=== PATIENT | female | born 1990 | race Caucasian/White ===

== ENCOUNTER 2018-03-01 20:23 | Emergency (ER) | payer OTHER, SELFPAY ==
[2018-03-01 20:30] VITALS: BP 125/80; PULSE 77; RESP 15; TEMP 36.7; O2SAT 98; BMI 29.8
--- NOTE | 2018-03-01 20:34 | DI.RAD.S_ITS ---
PROCEDURE: XR SHOULDER RT MIN 2V INDICATIONS: right shoulder injury TECHNIQUE: 2 views of the shoulder were acquired. COMPARISON: [facility], MR, SHOULDER WITH CONTRAST, 10/18/2015, 10:33. FINDINGS: Bones: Deformity of the distal right clavicle and widening of the right acromial clavicular joint not significantly changed compared to prior MRI which could be due to prior trauma or surgery. Suture anchor noted in the right coracoid process. No acute fractures or dislocations. No suspicious bony lesions. Visualized ribs appear intact. Soft tissues: No suspicious soft tissue calcifications. IMPRESSION: No fracture. No acute osseous lesion. If there are persistent symptoms or clinical suspicion for pathology, then repeat radiographs or advanced imaging (CT, MRI or bone scan) should be considered for further evaluation. Dictated by: Kathi Segundo MD, PhD on 03/01/2018 at 21:14 Approved by: Kathi Segundo MD, PhD on 03/01/2018 at 21:15
[2018-03-01 21:02] VITALS: BP 125/80; PULSE 77; RESP 15; TEMP 36.7; O2SAT 98; BMI 29.8
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
[2018-03-01] MEDS: HYDROCODONE/ACET 5/325 TABLET 2 TAB PO (21:21)
[2018-03-01] MEDS: IBUPROFEN 400 MG TABLET 800 MG PO (21:21)
[2018-03-01] MEDS: HYDROCODONE/ACET 5/325 PREPACK 1 BOTTLE MISC (21:57)
== END 2018-03-01 21:50 | disposition home or self-care (01) ==
PROVIDERS: Emergency Provider Internal Medicine
DX: S40.011A Contusion of right shoulder, initial encounter (principal); S46.911A Strain of unspecified muscle, fascia and tendon at shoulder and upper arm level, right arm, initial encounter; T73.3XXA Exhaustion due to excessive exertion, initial encounter; Y99.0 Civilian activity done for income or pay
CPT/HCPCS: 73030; 99282; 99283

== ENCOUNTER → 2019-11-24 15:33 | Outpatient (ROUT) | payer SELFPAY ==
[2019-11-26 19:43] LABS: COVID19 Sendout Not Detected (Not Detected)
== END ==
PROVIDERS: Visit Provider Internal Medicine
DX: Z11.59 Encounter for screening for other viral diseases (principal)
CPT/HCPCS: 87635

== ENCOUNTER 2019-12-29 18:13 | Emergency (ER) | payer OTHER, SELFPAY ==
[2019-12-29 18:17] VITALS: BP 113/56; PULSE 90; RESP 14; TEMP 36.6; O2SAT 98; BMI 29.5
[2019-12-29] MEDS: LIDOCAINE PATCH 1 EACH ADH..PATCH TOP (20:29)
[2019-12-29] MEDS: CYCLOBENZAPRINE 10 MG PREPACK 1 BOTTLE MISC (20:29)
[2019-12-29 20:43] VITALS: BP 115/66; PULSE 83; O2SAT 98
--- NOTE | 2019-12-29 20:47 | ED.BACK ---
HPI - Back Pain/Injury General Chief Complaint: Back Pain/Injury Stated Complaint: Lower Back Pain Time Seen by Provider: 12/29/19 20:00 Source: patient Mode of arrival: Ambulatory Limitations: no limitations History of Present Illness HPI Narrative: 29F nonsmoker without significant medical history presents with left lower back pain for 2 days. She thinks her pain started on a recent trip to [email or web address] when she was climbing around on big boulders and she was twisting and felt a pulling/tugging pain in her lower back. She is 19weeks . She does have a history of back pain with sciatica. She states her pain is worse with motion and improves with rest. She states it radiates down a little bit he on her buttocks in her left leg. She denies any numbness, tingling or weakness. She denies any trouble controlling or bladder. She denies any fever, chills or use blood thinners. She has no history of IV drug abuse. She denies any vaginal bleeding or discharge. MD Complaint: back pain and back injury Onset (ago): day(s) Duration: constant Similar Symptoms Previously: Yes Location: left lower back Severity: moderate Quality: sharp Radiation: left leg Exacerbating factors: movement Context: turning/twisting Associated symptoms: denies other symptoms Treatments prior to arrival: cold therapy and acetaminophen Related Data Home Medications Medication Instructions Recorded Confirmed celecoxib [Celebrex] 200 mg PO #0 05/22/16 melatonin 5 mg PO HS #0 05/22/16 trazodone 100 mg PO #0 05/22/16 Previous Rx's Medication Instructions Recorded oxycodone 5 mg PO Q4HP PRN #40 tab 05/26/16 oxycodone 5 mg PO Q4HP PRN #40 tab 05/26/16 cyclobenzaprine 10 mg PO TIDP PRN #20 tab 01/26/17 hydrocodone-acetaminophen [[place]] 1 tab PO Q4-6H PRN #7 tab 03/01/18 trazodone 50 mg PO BEDTIME PRN #10 tab 03/01/18 cyclobenzaprine 10 mg PO TID PRN #14 tab 12/29/19 lidocaine [Lidoderm] 1 patch TOP DAILY #15 each 12/29/19 Allergies Allergy/AdvReac Type Severity Reaction Status Date / Time diphenhydramine AdvReac Unknown Verified 12/29/19 18:17 [DIPHENHYDRAMINE] haloperidol [From Haldol] AdvReac Verified 12/29/19 18:17 Review of Systems Constitutional Constitutional: Denies chills, Denies fatigue, Denies fever(s), Denies frequent falls, Denies lethargy and Denies weakness Eyes Eyes: Denies change in vision, Denies eye discharge, Denies irritation and Denies loss of vision ENT Ears, Nose, Mouth, and Throat: Denies change in voice, Denies dizziness, Denies neck pain, Denies sore throat and Denies throat swelling Cardiovascular Cardiovascular: Denies chest pain, Denies irregular heart rhythm, Denies lightheadedness, Denies palpitations, Denies dyspnea, Denies dyspnea on exertion and Denies orthopnea Respiratory Respiratory: Denies cough, Denies dyspnea, Denies dyspnea on exertion and Denies wheezing Gastrointestinal Gastrointestinal: Denies abdominal pain, Denies change in bowel habits, Denies diarrhea, Denies nausea and Denies vomiting Musculoskeletal Musculoskeletal: Reports back pain, Denies neck pain and Denies numbness Integumentary/Breasts Skin/Breast: Denies pruritus, Denies erythema, Denies rash and Denies wounds Neurologic Neurologic: Denies behavioral changes, Denies confusion, Denies dizziness, Denies frequent falls, Denies loss of vision, Denies numbness and Denies weakness Psychiatric Psychiatric: Denies anxiety, Denies behavioral changes, Denies confusion, Denies depression, Denies homicidal ideation and Denies suicidal ideation Endocrine Endocrine: Denies fatigue, Denies flushing and Denies palpitations Hematologic/Lymphatic Hematologic/Lymphatic: Denies easy bruising Allergic/Immunologic Allergic/Immunologic: Denies urticaria, Denies throat swelling and Denies wheezing Patient History Medical History Insomnia (Chronic) Pollen allergies (Chronic) Sciatica (Chronic) Sciatica (Chronic) Surgical History Status post AC joint reconstruction (Resolved) Status post AC joint resection (Resolved) Social History Smoking Status: Former smoker Smoking Status: Former smoker alcohol intake frequency: holidays/special occasions only Substance Use Type: does not use Exam Narrative Exam Narrative: GENERAL: [29] year old patient appears stated age. Well-nourished, well-developed patient, in obvious pain HEAD: Atraumatic. Normocephalic. EYES: Pupils equal round and reactive. Extraocular motions intact. No scleral icterus. No injection or drainage. ENT: Nose without bleeding, purulent drainage. Throat without erythema, tonsillar hypertrophy or exudate. Airway patent. NECK: Trachea midline. Non tender CARDIOVASCULAR: Regular rate and rhythm without murmurs, gallops, or rubs. RESPIRATORY: Clear to auscultation. Breath sounds equal bilaterally. No wheezes, rales, or rhonchi. GASTROINTESTINAL: Abdomen soft, non-tender, nondistended. EXTREMITIES: No edema or joint tenderness. BACK: intermediate frame tender but free of any obvious external abnormalities. Patient exam notes decreased range of motion and muscle spasm, but no CVA tenderness, or vertebral point tenderness. There are no symptoms of cauda equina such as saddle anesthesia, and decreased reflexes, decreased sensation or strength. NEURO: AOx3. SKIN: No rash or erythema of visible areas Initial Vital Signs Initial Vital Signs: Vital Signs Temperature 97.9 F 12/29/19 18:17 Pulse Rate 90 12/29/19 18:17 Respiratory Rate 14 12/29/19 18:17 Blood Pressure 113/56 L 12/29/19 18:17 Pulse Oximetry 98 12/29/19 18:17 Course Orders Ordered: Discontinued Medications Cyclobenzaprine HCl (Flexeril 10 Mg Prepack) 1 bottle [facility] SEEINSTR ONE Stop: 12/29/19 20:19 Last Admin: 12/29/19 20:29 Dose: 1 bottle Documented by: AZAR Lidocaine (Lidoderm) 1 each TOP NOW ONE Stop: 12/29/19 20:19 Last Admin: 12/29/19 20:29 Dose: 1 each Documented by: AZAR Vital Signs Vital signs: Vital Signs - 8 hr 12/29/19 18:17 12/29/19 20:43 Temperature 97.9 F Pulse Rate 90 83 Respiratory Rate 14 Blood Pressure 113/56 L 115/66 Pulse Oximetry 98 98 Discharge Plan Departure Patient Disposition: Home Clinical Impression: Back muscle spasm Discharge Date/Time: 12/29/19 20:46 Instructions: DI for Back Spasm Activity Restrictions/Additional Instructions: *You have been diagnosed with [lumbar pain with spasm] *What to do: *Take medications as directed *Follow up with your primary care provider in 2-3 days, call for an appointment. Let them know you were seen in the Emergency Department and that we ask that you be seen in follow up *Return to ER if you should have any new, worsening or concerning symptoms Prescriptions: New cyclobenzaprine 10 mg tablet 10 mg PO TID PRN (Reason: muscle spasm) Qty: 14 RF: 0 lidocaine [Lidoderm] 5 % adhesive patch,medicated 1 patch TOP DAILY Qty: 15 RF: 0 No Action trazodone 100 MG tablet 100 mg PO Qty: 0 RF: 0 celecoxib [Celebrex] 200 MG capsule 200 mg PO Qty: 0 RF: 0 melatonin 5 MG tablet 5 mg PO HS Qty: 0 RF: 0 oxycodone 5 MG tablet 5 mg PO Q4HP PRNQty: 40 RF: 0 oxycodone 5 MG tablet 5 mg PO Q4HP PRNQty: 40 RF: 0 cyclobenzaprine 10 MG tablet 10 mg PO TIDP PRNQty: 20 RF: 0 trazodone 50 mg tablet 50 mg PO BEDTIME PRN (Reason: insomnia) Qty: 10 RF: 0 hydrocodone-acetaminophen [[place]] 5-325 mg tablet 1 tab PO Q4-6H PRN (Reason: shoulder pain) Qty: 7 RF: 0 Referrals: Jay Garner [Primary Care Provider] -
--- NOTE | 2019-12-29 21:08 | PC.NURSE ---
Pt left without prescriptions at time of discharge. Got a hold of patient on phone, PT requested prescriptions to be called into [facility] in [place]. Prescriptions called in.
== END 2019-12-29 20:46 | disposition home or self-care (01) ==
PROVIDERS: Emergency Provider Emergency Medicine; PCP Family Medicine
DX: M62.830 Muscle spasm of back (principal)
CPT/HCPCS: 99282

== ENCOUNTER → 2020-01-17 14:36 | Outpatient (ROUT) | payer SELFPAY ==
[2020-01-18 18:09] LABS: COVID19 Sendout Not Detected (Not Detected)
== END ==
PROVIDERS: PCP Family Medicine; Visit Provider Internal Medicine
DX: Z11.59 Encounter for screening for other viral diseases (principal)
CPT/HCPCS: 87635

== ENCOUNTER 2020-04-25 17:58 | Outpatient (CLI) | payer OTHER, SELFPAY ==
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
== END 2020-04-25 18:47 | disposition home or self-care (01) ==
LOC: OB 04-26 10:11
PROVIDERS: Referring Provider Family Medicine; Visit Provider Family Medicine
DX: O26.893 Other specified pregnancy related conditions, third trimester (principal); M54.5 Low back pain; R10.2 Pelvic and perineal pain; Z3A.35 35 weeks gestation of pregnancy
CPT/HCPCS: 59025; G0378; G0379

== ENCOUNTER → 2020-04-30 16:12 | Outpatient (CLI) | payer OTHER, SELFPAY ==
[2020-05-01 12:07] LABS: Strep Grp B PCR NEG for Grp B Strep
== END ==
PROVIDERS: Visit Provider Family Medicine
DX: Z34.90 Encounter for supervision of normal pregnancy, unspecified, unspecified trimester (principal); Z3A.36 36 weeks gestation of pregnancy
CPT/HCPCS: 87653

== ENCOUNTER 2020-05-16 01:22 | Outpatient (CLI) | payer OTHER, SELFPAY | END 2020-05-16 02:00 | disposition home or self-care (01) | LOC: LABOR 08:13 → OB 05-20 15:40 | PROVIDERS: Referring Provider Obstetrics & Gynecology; Visit Provider Obstetrics & Gynecology | DX: O26.893 Other specified pregnancy related conditions, third trimester (principal); N89.8 Other specified noninflammatory disorders of vagina; Z3A.38 38 weeks gestation of pregnancy | CPT/HCPCS: 59025; G0378; G0379 ==

== ENCOUNTER 2020-05-20 00:58 | Inpatient (IN) | payer OTHER, SELFPAY ==
[2020-05-20 01:33] LABS: Add Manual Diff / Slide Review NO; Basophils Absolute Auto 100 /uL (0-100); Basophils Percent Auto 1.2 % (0-2); Eosinophils Absolute Auto 100 /uL (0-450); Eosinophils Percent Auto 0.7 % (2-4); Hemoglobin 11.7 g/dL (12.0-16.0); Lymphocytes Absolute Auto 2900 /uL (1100-4500); Lymphocytes Percent Auto 26.1 % (25-40); Mean Corpuscular HGB Conc 33.4 % (30-36); Mean Corpuscular Hemoglobin 28.3 PG (26-34); Mean Corpuscular Volume 84.9 fL (80-100); Monocytes Absolute Auto 1100 /uL (0-900); Monocytes Percent Auto 10.1 % (3-14); Neutrophils Absolute Auto 6900 /uL (1500-7000); Neutrophils Percent Auto 61.9 % (50-75); Platelet Count 305 X10^3/uL (150-400); Red Blood Cell Count 4.12 X10^6/uL (4.0-5.2); Red Cell Distribution Width 15.1 % (11.6-14.8); White Blood Cell Count 11.1 X10^3/uL (4.5-11.0)
[2020-05-20 02:12] LABS: COVID19 -Nasal RAPID Negative (Negative)
[2020-05-20] MEDS: fentaNYL 100 MCG/2 ML INJ 50 MCG IV ×2 (02:20→03:10)
--- NOTE | 2020-05-20 02:49 | PM.OBPRVD ---
Labor & Delivery Delivery date: 05/20/20 Intrapartal events: Precipitous Labor < 3 hours Cervical ripening method: none Induction method: none Delivery monitor: external FHT Route of delivery: L&D Laceration Description: Perineal - 2nd Degree Delivery repair: vicryl Estimated blood loss (mL): 200 Anesthesia type: None Narrative: BRIEF HISTORY: Patient is a 29-year-old G1P at 39 weeks and 3 days who gave on 05/20/20 at 2:02 a.m.. SHRADDHA: 05/24/20 Hospital problems: 39 weeks of STAGE I: Labor Patient presented after spontaneous rupture membranes at home at 11:00 p.m. with clear fluid. Upon arrival to the center patient was 7 cm but rapidly progressed to pushing involuntarily. Stage I was less than 3 hours. Patient desired an epidural but did not have time due to rapid labor. heart tones were category 1 throughout stage I. STAGE II: Delivery Spontaneous vaginal delivery occurred at 2:02 a.m.. was vertex and PAMELA. There was a brief 30 second shoulder dystocia which resolved with Shabana maneuver and suprapubic pressure. was placed on mother's abdomen. Cord was clamped and cut after 1 minutes delay. Apgars were 9 and 9. No resuscitation of the required beyond drying and stimulating. STAGE III: Placenta/Cord Placenta delivered at 2:10 a.m. after active management and appeared intact with a three-vessel cord. A second-degree vaginal and perineal laceration was repaired with 3-0 Vicryl in the usual fashion with good hemostasis. Fundus firm below umbilicus. EBL: 200 mL. Needle and sponge counts were correct. The vagina was inspected and no items were left in situ. Patient was doing well with Irene, her and at bedside. Baby 1: gender: Female Presentation: vertex Placenta delivery description: Spontaneous cord vessel description: 3 Vessels score (1 min): 9 score (5 min): 9
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
[2020-05-20] MEDS: IBUPROFEN 600 MG TABLET PO ×3 (04:01→19:55)
[2020-05-20] MEDS: OXYTOCIN 10 UNIT/ML VIAL 20 UNIT (04:02)
[2020-05-20] MEDS: LIDOCAINE 1% 20 ML (04:02)
[2020-05-20] MEDS: OXYCODONE IR 5 MG TABLET PO ×4 (04:53→19:54)
[2020-05-20 05:54] VITALS: BP 124/76
[2020-05-20] MEDS: DOCUSATE 100 MG CAPSULE PO (09:20)
[2020-05-20] MEDS: PRENATAL VIT,CALC/IRON/FOLIC 1 TABLET 1 TAB PO (09:20)
[2020-05-20] MEDS: DERMOPLAST SPRAY 20% 60 ML 1 SPRAY TOP (20:13)
[2020-05-20] MEDS: LANOLIN OINT 7 GM 1 APPLIC TOP (20:13)
[2020-05-21] MEDS: OXYCODONE IR 5 MG TABLET PO ×4 (01:09→16:42)
[2020-05-21] MEDS: IBUPROFEN 600 MG TABLET PO ×2 (06:26→16:41)
--- NOTE | 2020-05-21 08:19 | PM.OBDS.1 ---
Discharge Providers Provider Date of admission: 05/20/20 00:58 Discharge Date: 05/21/20 Primary care physician: Doctor Silviano MD Consults: 05/21/20 02:46 Consult to Phlebotomy Director Routine Comment: Discharge provider: Latasha Lu DO Summary Hospital Course Date Patient Seen: 05/21/20 Time Patient Seen: 08:00 Procedures: Spontaneous vaginal delivery Hospital Course: Patient is a 29-year-old now 1 who is uncomplicated precipitous vaginal delivery on 05/20/20 at 39 weeks and 3 days gestation. Patient presented in active labor after spontaneous rupture of membranes and went on to quickly deliver a vigorous female . A second-degree vaginal and perineal laceration was repaired in the usual fashion. course was uncomplicated. Breast-feeding was going very well. Patient was ambulating voiding and passing flatus. Vaginal bleeding was light per patient. Patient was requiring oxycodone in addition to ibuprofen for her perineal pain. Advised patient to call for fevers, severe pain or bleeding through more than a pad an hour. She will follow-up in clinic in 6 weeks. Peripartum Data Delivery Method: Natural Vaginal Laceration Description: Perineal - 2nd Degree complications: none 1: Gender: Female Disposition of : home Discharge Diagnosis (1) Spontaneous vaginal delivery: Status: Acute (2) 39 weeks gestation of : Status: Acute Status at Discharge Cognitive/behavioral status at discharge: at baseline, oriented Functional status at discharge: independent ambulation Overall status at discharge: patient is progressing back to baseline Time Spent with Patient Time attestation: Total time spent providing and/or coordinating discharge services: Time spent: Less than 30 minutes Objective Labs Result Diagrams: 05/20/20 01:25 Exam Vital Signs (past 8 hours): Temperature 98.2? blood pressure 129/78 heart rate 80 respirations 16 Narrative Exam Narrative: General: Awake and alert, no acute distress. HEENT: NCAT, EOMI, moist oral mucosa CV: Regular rate and rhythm, no murmurs, rubs or gallops Lungs: CTAB, no wheezes, rales, or rhonchi Abdomen: Soft, nontender; bowel tones active; uterus firm 1 cm below umbilicus Extremities: Warm, no edema Discharge Plan Discharge Plan Patient Disposition: Home Discharge orders & Medications Prescriptions: New acetaminophen 325 mg Tablet 650 mg PO Q6HR PRN (Reason: Pain, Mild (1-3)) Qty: 30 RF: 0 Dermoplast (with menthol) 20-0.5 % Aerosol 1 spray topical Q1HR PRN (Reason: perineal pain) Qty: 1 RF: 0 docusate sodium [DOK] 100 mg Capsule 100 mg PO DAILY Qty: 30 RF: 0 ibuprofen 600 mg Tablet 600 mg PO Q6HR PRN (Reason: Pain, Mild (1-3)) Qty: 30 RF: 0 oxycodone 5 mg Tablet 5 mg PO Q4HR PRN (Reason: Pain, Moderate (4-6)) Qty: 5 RF: 0 Tyn-K-Nmllbg Cream 1 applic topical PRN PRN (Reason: Tenderness) Qty: 1 RF: 0 Continued melatonin 5 MG tablet 5 mg PO HS Qty: 0 RF: 0 prenat.vits,moses,umw-iucp-kfozi Tablet 1 tab PO DAILY RF: 0 loratadine [Allergy Relief (loratadine)] 10 mg tablet 10 mg PO DAILY RF: 0 pyridoxine (vitamin B6) 50 mg capsule 50 mg PO DAILY RF: 0 folic acid 400 mcg tablet 0.4 mg PO DAILY RF: 0 cholecalciferol (vitamin D3) 50 mcg (2,000 unit) capsule 50 mcg PO DAILY RF: 0 lidocaine [Lidoderm] 5 % adhesive patch,medicated 1 patch TOP DAILY Qty: 15 RF: 0 Follow up/Referrals: Miscellaneous,, [Primary Care Provider] - Visit Report/Discharge Packet Visit Report Forms: Patient Portal/API, Stroke Signs & Symptoms Discharge Data Primary Care Provider: Doctor Silviano
[2020-05-21] MEDS: PRENATAL VIT,CALC/IRON/FOLIC 1 TABLET 1 TAB PO (10:05)
[2020-05-21] MEDS: DOCUSATE 100 MG CAPSULE PO (10:05)
[2020-05-21 12:42] VITALS: BP 119/70; PULSE 80; RESP 16; TEMP 36.6
== END 2020-05-21 15:45 | disposition home or self-care (01) | DRG 807 ==
PROVIDERS: Admitting Provider Family Medicine; Referring Provider Family Medicine; Visit Provider Family Medicine
DX: O62.3 Precipitate labor (principal); Z37.0 Single live birth; O70.1 Second degree perineal laceration during delivery; Z3A.39 39 weeks gestation of pregnancy; J45.909 Unspecified asthma, uncomplicated; F31.9 Bipolar disorder, unspecified; F43.10 Post-traumatic stress disorder, unspecified; Z01.812 Encounter for preprocedural laboratory examination; Z20.828 Contact with and (suspected) exposure to other viral communicable diseases
CPT/HCPCS: 36415; 59050; 59410; 85025; 86850; 86900; 86901; 87635; G0379; J2590; J3010

== ENCOUNTER 2020-12-08 09:45 | Emergency (ER) | payer OTHER, SELFPAY ==
[2020-12-08 10:25] VITALS: BP 124/60; PULSE 81; RESP 14; TEMP 36.4; O2SAT 100
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
== END 2020-12-08 10:45 | disposition home or self-care (01) ==
PROVIDERS: Emergency Provider Emergency Medicine
DX: L50.8 Other urticaria (principal)
CPT/HCPCS: 99281

== ENCOUNTER 2021-07-05 11:18 | Emergency (ER) | payer OTHER, SELFPAY ==
[2021-07-05 11:33] VITALS: BP 101/62; PULSE 98; RESP 18; TEMP 36.2; O2SAT 99; BMI 26.0
[2021-07-05] MEDS: ONDANSETRON 4 MG/2 ML INJ IV (13:03)
[2021-07-05] MEDS: SODIUM CHLORIDE 0.9% 1,000 ML 1000 ML IV (13:03)
[2021-07-05 13:15] LABS: Alanine Aminotransferase 19 IU/L (<35); Albumin 4.5 g/dL (3.5-5.0); Albumin Globulin Ratio 1.6 (1.0-2.8); Alkaline Phosphatase 57 U/L (38-126); Aspartate Aminotransferase 28 IU/L (14-36); Bilirubin Total 0.7 mg/dL (0.2-1.3); Blood Urea Nitrogen 18 mg/dL (7-17); Calcium 8.6 mg/dL (8.4-10.2); Carbon Dioxide 24 mmol/L (22-32); Chloride 103 mmol/L (98-107); Estimated Glomerular Filt Rate > 60.0 mL/min (>60); Globulin 2.9 g/dL (1.7-4.1); Glucose 91 mg/dL (70-100); HEMOLYSIS 22 (0-50); Lipase 45 U/L (23-300); Potassium 4.5 mmol/L (3.4-5.1); Sodium 134 mmol/L (137-145); Total Protein 7.4 g/dL (6.3-8.2)
[2021-07-05 13:17] LABS: Add Manual Diff / Slide Review NO; Basophils Absolute Auto 0 /uL (0-100); Basophils Percent Auto 0.1 % (0-2); Eosinophils Absolute Auto 100 /uL (0-450); Eosinophils Percent Auto 1.4 % (2-4); Hematocrit 43.8 % (36-46); Hemoglobin 14.8 g/dL (12.0-16.0); Lymphocytes Absolute Auto 1500 /uL (1100-4500); Lymphocytes Percent Auto 14.5 % (25-40); Mean Corpuscular HGB Conc 33.9 % (30-36); Mean Corpuscular Hemoglobin 30.1 PG (26-34); Monocytes Absolute Auto 700 /uL (0-900); Monocytes Percent Auto 7.2 % (3-14); Neutrophils Absolute Auto 7700 /uL (1500-7000); Neutrophils Percent Auto 76.8 % (50-75); Platelet Count 306 X10^3/uL (150-400); Red Blood Cell Count 4.92 X10^6/uL (4.0-5.2); Red Cell Distribution Width 13.1 % (11.6-14.8)
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
[2021-07-05 16:35] VITALS: BP 107/58; PULSE 83; O2SAT 99
== END 2021-07-05 16:39 | disposition home or self-care (01) ==
PROVIDERS: Emergency Provider Emergency Medicine
DX: R19.7 Diarrhea, unspecified (principal); R14.2 Eructation; Z87.891 Personal history of nicotine dependence
CPT/HCPCS: 36415; 80053; 81003; 81025; 83690; 85025; 96361; 96374; 99284; J2405

== ENCOUNTER 2022-06-04 07:32 | Emergency (ER) | payer OTHER, SELFPAY ==
[2022-06-04 07:35] VITALS: BP 129/65; PULSE 91; RESP 15; TEMP 36.9; O2SAT 96; BMI 30.2
[2022-06-04 07:54] LABS: Appearance Urine UA CLEAR; Bilirubin Urine UA NEGATIVE (NEGATIVE); Color Urine UA YELLOW; Glucose Urine UA TRACE g/dL (Negative); Ketones Urine UA NEGATIVE (NEGATIVE); Leukocyte Esterase Urine UA TRACE (NEGATIVE); Nitrite Urine UA NEGATIVE (Negative); Occult Blood Urine UA 2+ (Negative); Protein Urine UA 1+ (Negative)
[2022-06-04 08:03] LABS: RBC Urine 1-5/HPF (0-5/HPF); WBC Urine 5-10/HPF (0-5/HPF)
[2022-06-04 08:04] LABS: Amorphous Sediment Urine 1+; Bacteria Urine Occasional (0-1); Culture Indicated Urine Specimen Cultured; Ictotest Urine Negative (Negative); Squamous Epithelial Cell Urine 1-5 /HPF (0-5/HPF)
[2022-06-04 08:11] LABS: Pregnancy Test Urine Negative (Negative)
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
[2022-06-04 08:59] LABS: Alanine Aminotransferase 13 IU/L (<35); Albumin 3.9 g/dL (3.5-5.0); Albumin Globulin Ratio 1.2 (1.0-2.8); Alkaline Phosphatase 56 U/L (38-126); Aspartate Aminotransferase 15 IU/L (14-36); BUN Creatinine Ratio 12.1 (6-22); Bilirubin Total 0.7 mg/dL (0.2-1.3); Blood Urea Nitrogen 7 mg/dL (7-17); Calcium 7.7 mg/dL (8.4-10.2); Carbon Dioxide 26 mmol/L (22-32); Chloride 100 mmol/L (98-107); Estimated Glomerular Filt Rate > 60 mL/min (>60); Globulin 3.3 g/dL (1.7-4.1); Glucose 107 mg/dL (70-100); HEMOLYSIS < 15 (0-50); Lipase 18 U/L (23-300); Potassium 3.2 mmol/L (3.4-5.1); Sodium 138 mmol/L (137-145); Total Protein 7.2 g/dL (6.3-8.2)
[2022-06-04 09:03] LABS: Hematocrit 41.1 % (36-46); Hemoglobin 14.2 g/dL (12.0-16.0); Mean Corpuscular HGB Conc 34.5 % (30-36); Mean Corpuscular Hemoglobin 30.4 PG (26-34); Mean Corpuscular Volume 88.1 fL (80-100); Platelet Count 298 X10^3/uL (150-400); Red Blood Cell Count 4.67 X10^6/uL (4.0-5.2); White Blood Cell Count 6.1 X10^3/uL (4.5-11.0)
[2022-06-04 09:10] LABS: Add Manual Diff / Slide Review YES
--- NOTE | 2022-06-04 09:38 | DI.CT.S_ITS ---
PROCEDURE: CT ABDOMEN PELVIS W CON INDICATIONS: abd pain, vomiting x 5 days TECHNIQUE: After the administration of intravenous contrast, axial sections acquired from the lung bases to the pubic symphysis. Coronal and sagittal reformats were performed. For radiation dose reduction, the following was used: automated exposure control, adjustment of mA and/or kV according to patient size. COMPARISON: None. FINDINGS: Image quality: Excellent. Lung bases: Unremarkable. Heart: No significant findings. ABDOMEN: Liver: Unremarkable. Gallbladder: Unremarkable. Biliary ducts: Unremarkable. Pancreas: Unremarkable. Spleen: Unremarkable. Adrenal Glands: Unremarkable. Kidneys and Ureters: Unremarkable. Stomach and Bowel: There is a loop of distal jejunum which has enhancement, diffuse wall thickening, and diffuse mild narrowing. The finding is typical of a loop that is involved with Crohn's disease. Proximal to this, the proximal jejunum is dilated, with some degree of fecalization of jejunal bowel contents. Loops measure up to 3.4 cm in diameter. No colonic wall thickening present. Peritoneum: Mild pelvic ascites, slightly greater than physiologic. No free air. Ventral Wall: No hernias. Abdominal Nodes: No retroperitoneal or mesenteric adenopathy by size criteria. Vessels: Aorta and inferior vena cava are normal in size. PELVIS: Pelvic Organs: There is a collapsed recently ruptured right ovarian cyst.. Bladder: Unremarkable. Pelvic Nodes: No enlarged lymph nodes. Miscellaneous: No hernias are seen. Bones: Unremarkable. IMPRESSION: Finds are suspicious for potential Crohn's disease of the distal jejunum resulting in a partial small bowel obstruction. Dictated by: Jared Gagnon M.D. on 06/04/2022 at 9:58 Approved by: Jared Gagnon M.D. on 06/04/2022 at 10:03
[2022-06-04 09:49] LABS: Neutrophils Absolute Manual 4392 /uL (3000-5900); Total Cells Counted 100
[2022-06-04 09:50] LABS: RBC Morphology Normal Morphology
[2022-06-04] MEDS: SODIUM CHLORIDE 0.9% 1,000 ML 1000 ML IV (11:08)
[2022-06-04] MEDS: ONDANSETRON 4 MG/2 ML INJ IV (11:10)
[2022-06-04] MEDS: KETOROLAC 30 MG/ML VIAL 15 MG IV ×2 (11:10→13:26)
[2022-06-04 11:19] LABS: Influenza A - CEPHEID Flu A NEGATIVE (NEGATIVE); Influenza B - CEPHEID Flu B NEGATIVE (NEGATIVE); Respiratory Syncytial Virus Negative (Negative)
[2022-06-04 11:33] LABS: COVID-19 CEPHEID 4-PLEX PCR Negative (Negative)
[2022-06-04 13:05] VITALS: BP 113/60; PULSE 88; RESP 18; O2SAT 98
[2022-06-04] MEDS: MORPHINE 4 MG/ML INJ IV (13:27)
[2022-06-04] MEDS: methylPREDNISolone 125 MG/2 ML VIAL IV (13:27)
== END 2022-06-04 13:58 | disposition home or self-care (01) ==
PROVIDERS: Emergency Provider Emergency Medicine
DX: K63.9 Disease of intestine, unspecified (principal); R11.10 Vomiting, unspecified; Z20.822 Contact with and (suspected) exposure to COVID-19
CPT/HCPCS: 0241U; 36415; 74177; 80053; 81001; 81003; 81025; 83690; 85007; 85025; 87086; 96361; 96374; 96375; 99284; J1885; J2270; J2405; J2930; Q9967

== ENCOUNTER → 2022-11-19 06:46 | Outpatient (CLI) | payer OTHER, SELFPAY ==
--- NOTE | 2022-11-19 06:47 | DI.US.S_ITS ---
PROCEDURE: US OB <= 14 WEEKS FETUS INDICATIONS: DATING OUTSIDE/PRIOR DATING DATA: Last menstrual period (LMP): Unknown. LMP-based estimated date of delivery (SHRADDHA): Unknown. First dating scan (date and location): Today's exam. Estimated date of delivery (SHRADDHA) from first dating scan: 06/03/2023 The calculations are made using the sonographic SHRADDHA of 06/03/2023. TECHNIQUE: Real-time scanning was performed of the fetus and maternal pelvic organs, with image documentation. Endovaginal scanning was also performed to better visualize the fetus and maternal ovaries. COMPARISON: None. FINDINGS: Embryo: Present, measuring 5.4 centimeters, corresponding to 12 weeks 0 days. 3 millimeter calcification within the gestational sac, possibly a calcified yolk sac. Heart rate: 153 beats per minute Other: Perigestational fluid collection measuring 6 x 3.5 x 1.4 centimeter. Maternal organs: Ovaries are unremarkable. IMPRESSION: Single living intrauterine at 12 weeks 0 days, SHRADDHA of 06/03/2023. Perigestational fluid collection measuring 6 x 3.5 x 1.4 centimeter. We strive to produce accurate, complete, and clear reports of imaging services. To assist us in improving patient care, this report was composed using standard report templates and voice recognition software. Therefore, it may contain abnormal punctuation, insertions and/or omissions. Occasional wrong-word or sound-alike substitutions may occur. Though we review the report and make efforts to correct it, we do recommend that the report be read carefully in proper context to recognize any text inaccuracies. Dictated by: Nick Mendieta M.D. on 11/19/2022 at 8:55 Approved by: Nick Mendieta M.D. on 11/19/2022 at 9:00
== END ==
PROVIDERS: Referring Provider Family Medicine; Visit Provider Family Medicine
DX: Z36.87 Encounter for antenatal screening for uncertain dates (principal); Z3A.12 12 weeks gestation of pregnancy
CPT/HCPCS: 76801; 76817

== ENCOUNTER → 2022-12-28 07:29 | Outpatient (CLI) | payer OTHER, SELFPAY ==
[2022-12-28 08:31] LABS: Appearance Urine UA CLEAR; Bilirubin Urine UA NEGATIVE (NEGATIVE); Color Urine UA YELLOW; Glucose Urine UA NEGATIVE (Negative); Ketones Urine UA NEGATIVE (NEGATIVE); Leukocyte Esterase Urine UA NEGATIVE (NEGATIVE); Nitrite Urine UA NEGATIVE (Negative); Occult Blood Urine UA NEGATIVE (Negative); Protein Urine UA NEGATIVE (Negative); Urobilinogen Urine UA 0.2 E.U./dL (0.2)
[2022-12-28 08:37] LABS: Add Manual Diff / Slide Review NO; Basophils Absolute Auto 100 /uL (0-100); Basophils Percent Auto 0.6 % (0-2); Eosinophils Absolute Auto 100 /uL (0-450); Eosinophils Percent Auto 1.3 % (2-4); Hematocrit 35.6 % (36-46); Hemoglobin 12.5 g/dL (12.0-16.0); Lymphocytes Absolute Auto 1900 /uL (1100-4500); Lymphocytes Percent Auto 17.9 % (25-40); Mean Corpuscular Hemoglobin 31.3 PG (26-34); Mean Corpuscular Volume 89.2 fL (80-100); Monocytes Absolute Auto 800 /uL (0-900); Monocytes Percent Auto 7.3 % (3-14); Neutrophils Absolute Auto 7800 /uL (1500-7000); Neutrophils Percent Auto 72.9 % (50-75); Platelet Count 253 X10^3/uL (150-400); Red Blood Cell Count 3.99 X10^6/uL (4.0-5.2); White Blood Cell Count 10.7 X10^3/uL (4.5-11.0)
[2022-12-28 08:44] LABS: pH Urine UA 6.5 (4.5-8.0)
[2022-12-28 16:36] LABS: Hepatitis B Surface Antigen NEGATIVE s/c (NEGATIVE); Rubella Antibody IgG 33.5 IU/mL (>15)
[2022-12-28 16:54] LABS: HIV 1 & 2 Ab/Ag 4th Gen Combo NEGATIVE (NEGATIVE); Hep C Virus Ab w/Reflex Quant NEGATIVE s/c (NEGATIVE)
[2022-12-29 09:17] LABS: RPR Screen Non Reactive (Non Reactive)
[2022-12-29 11:20] LABS: Varicella IgG Antibody 605 index (Immune >165)
== END ==
PROVIDERS: PCP Family Medicine; Referring Provider Family Medicine; Visit Provider Family Medicine
DX: Z34.80 Encounter for supervision of other normal pregnancy, unspecified trimester (principal)
CPT/HCPCS: 36415; 80055; 81003; 86787; 86803; 86850; 86900; 86901; 87086; 87389

== ENCOUNTER → 2023-01-19 08:05 | Outpatient (CLI) | payer OTHER, SELFPAY ==
--- NOTE | 2023-01-19 | DI.US.S_ITS ---
PROCEDURE: US OB >= 14 WEEKS FETUS INDICATIONS: ANATOMY SCAN OUTSIDE/PRIOR DATING DATA: Last menstrual period (LMP): Not available. LMP-based estimated date of delivery (SHRADDHA): Not available. First dating scan (date and location): 11/19/2022; [facility]. Estimated date of delivery (SHRADDHA) from first dating scan: 06/03/2023. The calculations are made using the working SHRADDHA of 05/26/2023. TECHNIQUE: Real-time scanning was performed of the fetus, with image documentation and biometric measurements. COMPARISON: [facility], , OB <= 14 WEEKS FETUS, 11/19/2022, 7:03. FINDINGS: General: A single living intrauterine gestation is present. Presentation: Breech. Placenta: Placental position is posterior, with previa. Amniotic fluid index: 14.1 cm, normal range is 5-24 cm. Single deepest vertical pocket is 4.2 cm. heart rate: 145 beats per minute. Maternal cervical canal: 5.9 cm long. Normal lower limit is 2.5 cm. biometrics: Biparietal diameter: 20 weeks 4 days Head circumference: 20 weeks 4 days Abdominal circumference: 20 weeks 4 days Femur length: 20 weeks 6 days Clinically estimated gestational age: 20 weeks 5 days Composite gestational age from present scan: 20 weeks 5 days Estimated weight and percentile: 371 g; 44% for gestational age. Anatomic survey: Neuro: Ventricles are non-dilated at less than 10 mm. Cisterna magna is normal at 3-11 mm. Cerebellum is normal in size and morphology. Nuchal skin fold: Normal at less than 6 mm between 14-21 weeks gestational age. Face: Nose and lips, facial profile are normal. Spine: No evidence for spina bifida. Heart: 4-chambered heart is present, with normal ventricular outflow tracts. Diaphragm: Diaphragm is intact. Stomach: Left-sided stomach is present. Kidneys: No hydronephrosis. Normal is less than 5 mm in 2nd trimester, less than 7 mm in 3rd trimester. Cord: 3-vessel cord has orthotopic insertion. Bladder: Normal in size. Extremities: All 4 extremities identified. IMPRESSION: 1. A single living intrauterine gestation with appropriate interval growth. 2. Normal anatomic survey. 3. Placenta previa. We strive to produce accurate, complete, and clear reports of imaging services. To assist us in improving patient care, this report was composed using standard report templates and voice recognition software. Therefore, it may contain abnormal punctuation, insertions and/or omissions. Occasional wrong-word or sound-alike substitutions may occur. Though we review the report and make efforts to correct it, we do recommend that the report be read carefully in proper context to recognize any text inaccuracies. Dictated by: Marcela Brandt M.D. on 01/19/2023 at 10:44 Approved by: Marcela Brandt M.D. on 01/19/2023 at 10:50
== END ==
PROVIDERS: PCP Family Medicine; Referring Provider Family Medicine; Visit Provider Family Medicine
DX: O44.02 Complete placenta previa NOS or without hemorrhage, second trimester (principal); Z3A.20 20 weeks gestation of pregnancy
CPT/HCPCS: 76811

== ENCOUNTER → 2023-03-04 09:45 | Outpatient (CLI) | payer OTHER, SELFPAY ==
[2023-03-04 11:51] LABS: Add Manual Diff / Slide Review NO; Basophils Absolute Auto 100 /uL (0-100); Basophils Percent Auto 0.6 % (0-2); Eosinophils Absolute Auto 200 /uL (0-450); Eosinophils Percent Auto 1.5 % (2-4); Hematocrit 36.4 % (36-46); Hemoglobin 12.5 g/dL (12.0-16.0); Lymphocytes Absolute Auto 2200 /uL (1100-4500); Lymphocytes Percent Auto 18.7 % (25-40); Mean Corpuscular HGB Conc 34.5 % (30-36); Mean Corpuscular Hemoglobin 30.7 PG (26-34); Mean Corpuscular Volume 89.1 fL (80-100); Monocytes Absolute Auto 900 /uL (0-900); Monocytes Percent Auto 7.5 % (3-14); Neutrophils Absolute Auto 8300 /uL (1500-7000); Neutrophils Percent Auto 71.7 % (50-75); Platelet Count 297 X10^3/uL (150-400); Red Blood Cell Count 4.08 X10^6/uL (4.0-5.2); Red Cell Distribution Width 12.5 % (11.6-14.8); White Blood Cell Count 11.6 X10^3/uL (4.5-11.0)
[2023-03-04 12:33] LABS: GTT (PREG) 1 Hour PP 50gm Dose 115 mg/dL (76-139)
== END ==
PROVIDERS: PCP Family Medicine; Referring Provider Family Medicine; Visit Provider Family Medicine
DX: Z34.80 Encounter for supervision of other normal pregnancy, unspecified trimester (principal)
CPT/HCPCS: 36415; 82950; 85025; 86850

== ENCOUNTER → 2023-03-05 14:28 | Outpatient (CLI) | payer OTHER, SELFPAY ==
--- NOTE | 2023-03-05 14:28 | DI.US.S_ITS ---
PROCEDURE: US OB FOLLOW UP INDICATIONS: PLACENTA PREVIA OUTSIDE/PRIOR DATING DATA: Last menstrual period (LMP): Unknown. First dating scan (date and location): 11/19/2022. Estimated date of delivery (SHRADDHA) from first dating scan: 06/03/2023. TECHNIQUE: Real-time scanning was performed of the fetus, with image documentation. COMPARISON: [facility], , OB >= 14 WEEKS FETUS, 01/19/2023, 8:33. FINDINGS: A single living intrauterine gestation is present. Breech presentation. Placenta: Placental position is posterior, without previa. The placenta is 1.4-1.6 centimeters centimeters from the internal os on transvaginal images. Amniotic fluid index: 13 cm, normal range is 5-24 cm. Single deepest vertical pocket is 3.7 centimeters heart rate: 157 beats per minute. Maternal cervical canal: 4.5 cm long. Normal lower limit is 2.5 cm. Clinically estimated gestational age: 27 weeks and 1 day IMPRESSION: On transvaginal images, the placenta is 1.4 centimeters from the internal os. Recommend continued follow-up. Dictated by: Bebeto Kathleen M.D. on 03/05/2023 at 17:03 Approved by: Bebeto Kathleen M.D. on 03/05/2023 at 17:07
== END ==
PROVIDERS: PCP Family Medicine; Referring Provider Family Medicine; Visit Provider Family Medicine
DX: Z3A.27 27 weeks gestation of pregnancy; O44.02 Complete placenta previa NOS or without hemorrhage, second trimester
CPT/HCPCS: 76816; 76817

== ENCOUNTER → 2023-04-13 07:56 | Outpatient (CLI) | payer OTHER, SELFPAY ==
--- NOTE | 2023-04-13 07:57 | DI.US.S_ITS ---
PROCEDURE: US OB FOLLOW UP INDICATIONS: FOLLOW UP LOW LYING PLACENTA OUTSIDE/PRIOR DATING DATA: Last menstrual period (LMP): Unknown. LMP-based estimated date of delivery (SHRADDHA): Unknown. First dating scan (date and location): 11/19/2022. Estimated date of delivery (SHRADDHA) from first dating scan: 06/03/2023. The calculations are made using the working SHRADDHA of 06/03/2023. TECHNIQUE: Real-time scanning was performed of the fetus, with image documentation and biometric measurements. Endovaginal scanning: None COMPARISON: [facility], , OB FOLLOW UP, 03/05/2023, 15:08. FINDINGS: General: A single living intrauterine gestation is present. Presentation: Vertex. Placenta: Placental position is posterior , without previa. No low lying placenta Amniotic fluid index: 15.9 cm, normal range is 5-24 cm. Single deepest vertical pocket is 4.8 cm. heart rate: 157 beats per minute. Maternal cervical canal: 4.4 cm long. Normal lower limit is 2.5 cm. biometrics: Clinically estimated gestational age: 32 week 5 day IMPRESSION: Single live intrauterine consistent with 32 week 5 day gestation. No evidence of low lying placenta Approved by: Micah Luque M.D. on 04/13/2023 at 18:54
== END ==
PROVIDERS: PCP Family Medicine; Referring Provider Family Medicine; Visit Provider Family Medicine
DX: O44.03 Complete placenta previa NOS or without hemorrhage, third trimester (principal); Z3A.32 32 weeks gestation of pregnancy
CPT/HCPCS: 76816; 76817

== ENCOUNTER → 2023-05-03 07:45 | Outpatient (CLI) | payer OTHER, SELFPAY ==
--- NOTE | 2023-05-03 07:45 | DI.US.S_ITS ---
PROCEDURE: US OB LIMITED INDICATIONS: HISTORY OF FIRST SHOULDE DYSTOCIA. GROWTH. OUTSIDE/PRIOR DATING DATA: Last menstrual period (LMP): Unknown. LMP-based estimated date of delivery (SHRADDHA): Not available. First dating scan (date and location): November 19, 2022. Estimated date of delivery (SHRADDHA) from first dating scan: June 03, 2023. TECHNIQUE: Real-time scanning was performed of the fetus, with image documentation and biometric measurements. COMPARISON: None. FINDINGS: General: A single living intrauterine gestation is present. Presentation: Vertex. Placenta: Placental position is posterior , without previa. Amniotic fluid index: 17.2 cm, normal range is 5-24 cm. Single deepest vertical pocket is 5.2 cm. heart rate: 135 beats per minute. Maternal cervical canal: 4.9 cm long. Normal lower limit is 2.5 cm. biometrics: Biparietal diameter: 8.2 cm, 32 weeks, 6 days Head circumference: 30.9 cm, 34 weeks, 3 days Abdominal circumference: 30.6 cm, 34 weeks, 4 days Femur length: 7.1 cm, 36 weeks, 2 days Clinically estimated gestational age: 35 weeks, 4 days Composite gestational age from present scan: 34 weeks, 4 days Estimated weight and percentile: 2519 g, 28% Other: Not applicable. IMPRESSION: 1. Single live intrauterine gestation with a composite gestational age which is concordant with dates by initial scan. 2. Overall appropriate growth at 28%. However, the biparietal diameter and head circumference are 2% and 5%, respectively. We strive to produce accurate, complete, and clear reports of imaging services. To assist us in improving patient care, this report was composed using standard report templates and voice recognition software. Therefore, it may contain abnormal punctuation, insertions and/or omissions. Occasional wrong-word or sound-alike substitutions may occur. Though we review the report and make efforts to correct it, we do recommend that the report be read carefully in proper context to recognize any text inaccuracies. Dictated by: Erin Hurt M.D. on 05/03/2023 at 10:59 Approved by: Erin Hurt M.D. on 05/03/2023 at 11:03
== END ==
PROVIDERS: PCP Family Medicine; Referring Provider Family Medicine; Visit Provider Family Medicine
DX: Z34.80 Encounter for supervision of other normal pregnancy, unspecified trimester (principal); Z36.89 Encounter for other specified antenatal screening
CPT/HCPCS: 76815

== ENCOUNTER → 2023-05-04 08:25 | Outpatient (CLI) | payer OTHER, SELFPAY ==
[2023-05-05 14:10] LABS: Strep Grp B PCR NEG for Grp B Strep
== END ==
PROVIDERS: PCP Family Medicine; Visit Provider Family Medicine
DX: Z34.80 Encounter for supervision of other normal pregnancy, unspecified trimester (principal); Z3A.36 36 weeks gestation of pregnancy
CPT/HCPCS: 87653

== ENCOUNTER 2023-05-06 09:51 | Outpatient (CLI) | payer OTHER, SELFPAY | END 2023-05-06 10:28 | disposition home or self-care (01) | LOC: OB 05-10 06:39 | PROVIDERS: PCP Family Medicine; Referring Provider Family Medicine; Visit Provider Family Medicine | DX: O36.5930 Maternal care for other known or suspected poor fetal growth, third trimester, not applicable or unspecified (principal); Z3A.36 36 weeks gestation of pregnancy | CPT/HCPCS: 59025; G0378; G0379 ==

== ENCOUNTER 2023-05-12 05:58 | Observation (INO) | payer OTHER, SELFPAY ==
[2023-05-12 06:49] LABS: Appearance Urine UA CLEAR; Bilirubin Urine UA NEGATIVE (NEGATIVE); Color Urine UA YELLOW; Glucose Urine UA NEGATIVE (Negative); Ketones Urine UA NEGATIVE (NEGATIVE); Leukocyte Esterase Urine UA NEGATIVE (NEGATIVE); Nitrite Urine UA NEGATIVE (Negative); Occult Blood Urine UA TRACE-INTACT (Negative); Protein Urine UA NEGATIVE (Negative); Specific Gravity Urine UA 1.025 (1.000-1.035); Urobilinogen Urine UA 0.2 E.U./dL (0.2)
[2023-05-12] MEDS: LACTATED RINGERS 1,000 ML 1000 ML IV ×2 (06:55→08:01)
[2023-05-12 06:56] LABS: Bacteria Urine Occasional (0-1); Culture Indicated Urine Cult Not Indicated; RBC Urine 1-5/HPF (0-5/HPF); Squamous Epithelial Cell Urine 0-1 /HPF (0-5/HPF); WBC Urine 0-1/HPF (0-5/HPF)
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
== END 2023-05-12 09:25 | disposition home or self-care (01) ==
PROVIDERS: Admitting Provider Obstetrics & Gynecology; PCP Family Medicine; Referring Provider Obstetrics & Gynecology; Visit Provider Obstetrics & Gynecology
DX: O47.03 False labor before 37 completed weeks of gestation, third trimester (principal); Z3A.36 36 weeks gestation of pregnancy
CPT/HCPCS: 59025; 59050; 81001; 96360; G0378; G0379

== ENCOUNTER 2023-05-14 16:25 | Outpatient (CLI) | payer OTHER, SELFPAY ==
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
== END 2023-05-14 17:02 | disposition home or self-care (01) ==
LOC: LABOR 16:39 → OB 06-10 08:21
PROVIDERS: PCP Family Medicine; Referring Provider Family Medicine; Visit Provider Family Medicine
DX: Z03.71 Encounter for suspected problem with amniotic cavity and membrane ruled out (principal); O26.893 Other specified pregnancy related conditions, third trimester; N89.8 Other specified noninflammatory disorders of vagina; Z3A.37 37 weeks gestation of pregnancy
CPT/HCPCS: 59025; 84112; G0378; G0379

== ENCOUNTER 2023-05-17 15:38 | Outpatient (CLI) | payer OTHER, SELFPAY | END 2023-05-17 16:30 | disposition home or self-care (01) | LOC: OB 05-18 17:12 | PROVIDERS: PCP Family Medicine; Referring Provider Family Medicine; Visit Provider Family Medicine | DX: O46.93 Antepartum hemorrhage, unspecified, third trimester (principal); O36.5930 Maternal care for other known or suspected poor fetal growth, third trimester, not applicable or unspecified; Z3A.37 37 weeks gestation of pregnancy | CPT/HCPCS: 59025; G0378; G0379 ==

== ENCOUNTER 2023-05-19 18:32 | Outpatient (CLI) | payer OTHER, SELFPAY | END 2023-05-19 19:43 | disposition home or self-care (01) | LOC: OB 05-24 11:54 | PROVIDERS: PCP Family Medicine; Referring Provider Family Medicine; Visit Provider Family Medicine | DX: O47.1 False labor at or after 37 completed weeks of gestation (principal); O36.5930 Maternal care for other known or suspected poor fetal growth, third trimester, not applicable or unspecified; Z3A.37 37 weeks gestation of pregnancy | CPT/HCPCS: 59025; G0378; G0379 ==

== ENCOUNTER 2023-05-22 06:18 | Inpatient (IN) | payer OTHER, SELFPAY ==
[2023-05-22 07:43] LABS: Add Manual Diff / Slide Review NO; Basophils Absolute Auto 100 /uL (0-100); Basophils Percent Auto 0.6 % (0-2); Eosinophils Absolute Auto 100 /uL (0-450); Eosinophils Percent Auto 1.2 % (2-4); Hematocrit 36.4 % (36-46); Hemoglobin 12.2 g/dL (12.0-16.0); Lymphocytes Absolute Auto 2000 /uL (1100-4500); Lymphocytes Percent Auto 16.6 % (25-40); Mean Corpuscular HGB Conc 33.4 % (30-36); Mean Corpuscular Hemoglobin 28.9 PG (26-34); Mean Corpuscular Volume 86.5 fL (80-100); Monocytes Absolute Auto 1100 /uL (0-900); Monocytes Percent Auto 8.8 % (3-14); Neutrophils Absolute Auto 8800 /uL (1500-7000); Neutrophils Percent Auto 72.8 % (50-75); Platelet Count 332 X10^3/uL (150-400); Red Blood Cell Count 4.21 X10^6/uL (4.0-5.2); Red Cell Distribution Width 13.7 % (11.6-14.8)
[2023-05-22] MEDS: LACTATED RINGERS 1,000 ML 100 ML IV ×3 (09:00→16:23)
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
[2023-05-22] MEDS: ONDANSETRON 4 MG/2 ML INJ IV (11:50)
[2023-05-22] MEDS: FENT 2MCG/ML BUPIV 0.125% EPI 200 MCG/100 ML PLAST..BAG 8 MCG EPIDURAL ×2 (13:00→19:00)
[2023-05-22] MEDS: ePHEDrine 50 MG/ML VIAL 10 MG IV (13:11)
[2023-05-22] MEDS: OXYTOCIN PREMIX 30 UNIT/500 ML PLAST..BAG IV (16:16)
--- NOTE | 2023-05-22 19:19 | P.PCNOB_ITS ---
Labor & Delivery Delivery date: 05/22/23 Intrapartal Events: None Cervical ripening method: none Induction method: none Delivery augmentation: pitocin Delivery monitor: internal FHT and internal uterine Route of delivery: Episiotomy description: None L&D Laceration Description: Perineal - 2nd Degree Estimated blood loss (mL): 200 Anesthesia Type: Epidural Complications: None Narrative: PROCEDURE: at 38w2d presented with SROM in active labor and was admitted to Labor and Delivery. The patient progressed through the 1st stage over 12 hours. ROM occured at 5:30 with clear fluid. Pain was controlled with an epidural. The pt had recurrent variable decels. IUPC placed, however FHT improved. FSE was placed to allow for better monitoring. The pt had intermittent Category II tracing throughout her labor with sporadic variable and late decels. The patient progressed through the 2nd stage over 1.5 hours and delivered a viable male infant with APGARs 8/8 at 18:47 via without complications. The cord was cut and clamped after it stopped pulsating. The placenta delivered with gentle cord traction, and appeared complete. The perineum and vagina were inspected with 2nd degree perineal laceration repaired with 2-O Vicryl. Needle and sponge counts were correct.? The vagina was inspected and no items were left in situ. Pt was doing well with [place], her and her at bedside. PREPROCEDURE DIAGNOSIS: Intrauterine at 38w2d ADHD GBS negative RH positive POSTPROCEDURE DIAGNOSIS: Intrauterine at 38w2d, delivered Same as preprocedure Baby 1: Infant gender: Male Presentation: vertex Position: Left Occiput Anterior Placenta delivery description: Spontaneous Cord Vessel Description: 3 Vessels score (1 min): 8 score (5 min): 8 weight: 6 lb 8.764 oz Plan for aftercare: Routine care
[2023-05-22] MEDS: IBUPROFEN 600 MG TABLET PO (21:19)
[2023-05-22] MEDS: ACETAMINOPHEN 325 MG TABLET 650 MG PO (21:20)
[2023-05-22] MEDS: OXYCODONE IR 5 MG TABLET PO (23:39)
[2023-05-23] MEDS: IBUPROFEN 600 MG TABLET PO ×3 (02:53→15:37)
[2023-05-23] MEDS: ACETAMINOPHEN 325 MG TABLET 650 MG PO ×3 (02:53→15:36)
[2023-05-23] MEDS: DOCUSATE 100 MG CAPSULE PO (08:00)
[2023-05-23] MEDS: OXYCODONE IR 5 MG TABLET PO (08:00)
--- NOTE | 2023-05-23 10:39 | PM.OBDS.1 ---
Discharge Providers Provider Date of admission: 05/22/23 06:18 Discharge Date: 05/23/23 Primary care physician: Per Braun DO Consults: 05/23/23 19:18 Consult to Gis Software Engineer Routine Comment: Discharge provider: Brenna Bernstein MD Summary Hospital Course Date Patient Seen: 05/23/23 Time Patient Seen: 10:39 Diagnoses: Intrauterine at 38w2d ADHD GBS negative RH positive Hospital Course: The pt presented in active labor with SROM at home. She received an epidural for pain control. IUPC and FSE were placed due to intermittent Category II tracing, however amnioinfusion was never necessary. She progressed to complete and had an of a viable baby boy without complications. A 2nd degree perineal laceration was repaired. , there were no complications. At the time of discharge she was voiding, ambulating, and passing flatus without difficulty. Her lochia was decreasing appropriately. Her pain was well controlled. She was with good latch. She will f/u in 6 weeks for check. She would like Nexplanon for contraception. Peripartum Data Infant Delivery Method: Natural Vaginal Laceration Description: Perineal - 2nd Degree Episiotomy description: None Procedures: Spontaneous vaginal delivery complications: none 1: Gender: Male Disposition of : home Time Spent with Patient Time attestation: Total time spent providing and/or coordinating discharge services: Objective Labs 05/22/23 07:00 Exam Narrative Exam Narrative: Gen: NAD, sitting comfortably in bed, appears well CV: RRR, no murmurs Resp: clear to auscultation bilaterally Abd: soft, appropriately tender, fundus firm and below the umbilicus, nondistended Ext: no edema Discharge Plan Discharge Plan Patient Disposition: Home Discharge orders & Medications Prescriptions: New acetaminophen 325 mg Tablet 650 mg PO Q6HR PRN (Reason: Pain, Mild (1-3)) Qty: 30 0RF docusate sodium 100 mg Capsule 100 mg PO DAILY Qty: 30 0RF ibuprofen 600 mg Tablet 600 mg PO Q6HR PRN (Reason: Pain, Mild (1-3)) Qty: 30 0RF Continued prenat.vits,moses,[id number] Tablet 1 tab PO DAILY loratadine [Allergy Relief (loratadine)] 10 mg tablet 10 mg PO DAILY folic acid 400 mcg tablet 0.4 mg PO DAILY cholecalciferol (vitamin D3) 50 mcg (2,000 unit) capsule 50 mcg PO DAILY montelukast [Singulair] 10 mg tablet 10 mg PO DAILY Discontinued dextroamphetamine-amphetamine [Adderall XR] 20 mg capsule,extended release 24hr 20 mg PO DAILY Follow up/Referrals: Brenna Bernstein MD [Physician] - 6 Weeks Per Braun DO [Primary Care Provider] - Diet/Activity/Treatments Diet: Diet as Tolerated and Regular Skin/Wound/Dressing Care Report to your healthcare provider any signs of infection, such as:: chills, fever, increased pain and unusual drainage Visit Report/Discharge Packet Instructions: DI for Labor and Delivery, Vaginal Stand Alone Forms: Patient Portal/API, Stroke Signs & Symptoms Discharge Data Primary Care Provider: Per Braun
[2023-05-23] MEDS: OXYCODONE IR 10 MG TABLET PO ×2 (12:56→16:46)
== END 2023-05-23 16:50 | disposition home or self-care (01) | DRG 807 ==
PROVIDERS: Admitting Provider Family Medicine; PCP Family Medicine; Referring Provider Family Medicine; Visit Provider Family Medicine
DX: O60.23X0 Term delivery with preterm labor, third trimester, not applicable or unspecified (principal); Z37.0 Single live birth; O70.1 Second degree perineal laceration during delivery; Z3A.38 38 weeks gestation of pregnancy; O99.344 Other mental disorders complicating childbirth; F90.9 Attention-deficit hyperactivity disorder, unspecified type; O76 Abnormality in fetal heart rate and rhythm complicating labor and delivery
CPT/HCPCS: 36415; 59050; 59400; 84112; 85025; 86850; 86900; 86901; G0379; J2405; J2590

== ENCOUNTER 2023-05-28 19:43 | Observation (INO) | payer OTHER, SELFPAY ==
[2023-05-28 19:50] VITALS: BP 137/67; PULSE 68; RESP 17; TEMP 36.8; O2SAT 98
[2023-05-28 20:56] LABS: Add Manual Diff / Slide Review NO; Basophils Absolute Auto 0 /uL (0-100); Basophils Percent Auto 0.8 % (0-2); Eosinophils Absolute Auto 100 /uL (0-450); Eosinophils Percent Auto 2.3 % (2-4); Hematocrit 33.3 % (36-46); Lymphocytes Absolute Auto 1500 /uL (1100-4500); Lymphocytes Percent Auto 23.1 % (25-40); Mean Corpuscular HGB Conc 33.1 % (30-36); Mean Corpuscular Hemoglobin 28.2 PG (26-34); Mean Corpuscular Volume 85.1 fL (80-100); Monocytes Absolute Auto 500 /uL (0-900); Monocytes Percent Auto 7.2 % (3-14); Neutrophils Absolute Auto 4300 /uL (1500-7000); Neutrophils Percent Auto 66.6 % (50-75); Platelet Count 355 X10^3/uL (150-400); Red Blood Cell Count 3.92 X10^6/uL (4.0-5.2); Red Cell Distribution Width 13.8 % (11.6-14.8); White Blood Cell Count 6.5 X10^3/uL (4.5-11.0)
[2023-05-28 21:01] LABS: Aspartate Aminotransferase 38 IU/L (14-36); Blood Urea Nitrogen 17 mg/dL (7-17); Estimated Glomerular Filt Rate > 60 mL/min (>60); Uric Acid 6.6 mg/dL (2.5-6.2)
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
[2023-05-28 21:24] LABS: Creatinine Urine Random 28.3 mg/dL; Protein (Total) Urine Random 9 mg/dL (0-12); Protein Creatinine Ratio Urine 0.31 GRAM/24H
[2023-05-28] MEDS: ACETAMINOPHEN 325 MG TABLET 975 MG PO (21:59)
[2023-05-28] MEDS: IBUPROFEN 600 MG TABLET PO (22:00)
[2023-05-28] MEDS: ONDANSETRON 4 MG ODT SL (22:00)
[2023-05-28] MEDS: MAGNESIUM SULFATE 4 GM/100 ML PIGGYBACK IV (22:02)
[2023-05-28] MEDS: MAGNESIUM SULFATE 20 GM/500 ML IV.SOLN IV (23:18)
--- NOTE | 2023-05-28 23:53 | PC.NURSE ---
Pt arrived at 1943 from home. She reports that she took a nap and woke up with a constant headache rating 7/10, nausea, SOB, swelling in extremities and face, fuzzy vision, left upper back pain. She took 650mg PO tylenol at 1730. She present with and baby in wheel chair.
--- NOTE | 2023-05-28 23:57 | PC.NURSE ---
At 1952, BP 137/67, P 68, RR 16, O2 sats 98%, temp 98.2F 4+ DTRs on LE, no clonus, 2+ pitting edema in LE, facial and upper extremity edema, lungs clear throughout, A&O x4. Pt reports MOSS 4-7/10 pain cyclic throbbing, nausea Call to Dr. Cardona at 2007, orders received for pre-eclampsia labs, saline lock and serial BPs. 2034- BP 156/74, P- 64, RR- 17, O2 sat- 98%, temp- 98.1F. Pt reports MOSS 5/10 & nausea. Labs drawn and sent. ED called for US guided SL placement. 2099-Dr. Cardona present talking with Pt about POC of starting MGSO4 and running x24hrs
[2023-05-29] VITALS (9 sets, daily range): BP systolic 115–133; BP diastolic 62–83; PULSE 66–89; RESP 14–17; TEMP 36.1–36.9; O2SAT 96–97
--- NOTE | 2023-05-29 00:10 | PC.NURSE ---
2200-meds given for pain and nausea. 2206 MGSO4 4g bolus started with TO, RN verification. BP-135/75, P- 68, RR- 16, temp- 98.1F, O2 sat- 96% Pt reports MOSS. nausea resolved. Lungs clear, DTRs in LE are 4+, no clonus, A&Ox4. FOB at bedside with . Seizure precautions in place and calcium gluconate in room. Pt on bedrest with comode privileges per Dr. Cardona. 2220-BP- 132/76, P-78, RR- 17, temp- 98.1, O2 sat- 97% MOSS persists. Denies nausea. A&Ox4, lungs clear, DTRs 4+, no clonus. FOB at bedside with . Seizure precautions in place and calcium gluconate in room. Pt on bedrest with comode privileges per Dr. Cardona. 2237- BP- 126/70, P- 82, RR- 17, temp- 98.2F, O2 sat- 99%. MOSS persists. Denies nausea. A&Ox4, lungs clear, DTRs 4+, no clonus. FOB at bedside with . Seizure precautions in place and calcium gluconate in room. Pt on bedrest with comode privileges per Dr. Cardona. 2240- IV causing pain per Pt. IV stopped at 76.9cc given and ED called to assess IV site. FOB at bedside with . Seizure precautions in place and calcium gluconate in room. Pt on bedrest with comode privileges per Dr. Cardona. 2252- BP- 128/72, P- 87, RR- 17, temp-98.1F, O2 sat- 98%. Pt denies MOSS, nausea, visual disturbances, LUQ pain. DTRs 4+, no clonus, Lungs clear. A&Ox4. Facial and UE edema, 2+ edema in LE. FOB at bedside with . Seizure precautions in place and calcium gluconate in room. Pt on bedrest with comode privileges per Dr. Cardona. 2312- MGSO4 4g bolus restarted. BP- 123/61, P- 75, RR- 17, temp- 98.1f, O2 sat- 98%. Pt denies MOSS, nausea, visual disturbances, LUQ pain. DTRs 4+, no clonus, Lungs clear. A&Ox4. Facial and UE edema, 2+ edema in LE. FOB at bedside with . Seizure precautions in place and calcium gluconate in room. Pt on bedrest with comode privileges per Dr. Cardona. 2318- 4G MGSO4 bolus complete. 2g MGSO4 maintenance started BP- 116/59, P- 77, RR- 17, temp- 98.1f, O2 sat- 96%. Pt denies MOSS, nausea, visual disturbances, LUQ pain. DTRs 4+, no clonus, Lungs clear. A&Ox4. Facial and UE edema, 2+ edema in LE. FOB at bedside with . Seizure precautions in place and calcium gluconate in room. Pt on bedrest with comode privileges per Dr. Cardona.
--- NOTE | 2023-05-29 00:29 | PC.NURSE ---
2340- Pt voided 300cc yellow urine in bedside comode
[2023-05-29] MEDS: OXYCODONE IR 5 MG TABLET PO ×3 (01:15→18:51)
[2023-05-29] MEDS: ACETAMINOPHEN 325 MG TABLET 975 MG PO ×4 (03:30→22:24)
[2023-05-29] MEDS: IBUPROFEN 600 MG TABLET PO ×4 (03:31→22:22)
--- NOTE | 2023-05-29 03:50 | PC.NURSE ---
0120-BP- 123/61, P- 77, RR- 17, temp- 97.3f, O2 sat- 98%. Pt reports MOSS pain 1/10. Denies nausea, RUQ pain, visual disturbances. Lungs clear. A&Ox4. FOB at bedside with . Seizure precautions in place and calcium gluconate in room. Pt on bedrest with commode privileges per Dr. Cardona. 0320-BP- 132/74, P- 76, RR- 17, temp- 97.6f, O2 sat- 97%. IB/tylenol given for pain in perineum. Pt reports MOSS pain 2/10. Denies nausea, RUQ pain, visual disturbances. Lungs clear. A&Ox4. FOB at bedside with . Seizure precautions in place and calcium gluconate in room. Pt on bedrest with commode privileges per Dr. Cardona. Pt complaining of IV site pain. IV does not appear infiltrated. Call to ED to to use US for new IV placement.
--- NOTE | 2023-05-29 05:59 | PC.NURSE ---
0340- ED RN placed 18g IV in right forearm, infusing well. Left forearm 18g still in place. 0520-BP- 122/68, P- 74, RR- 17, temp- 99.0f, O2 sat- 96%. Denies MOSS, nausea, RUQ pain, visual disturbances. Lungs clear. A&Ox4. Facial and UE edema, 1+ pitting edema in LE, 3+ DTR in LE, no clonus. FOB at bedside with . Seizure precautions in place and calcium gluconate in room. Pt on bedrest with commode privileges per Dr. Cardona.
--- NOTE | 2023-05-29 06:22 | PC.NURSE ---
I's/O's 2320- 100mls IV intake 0020- 50mls IV intake, 300 urine output 0120- 50mls IV intake 0220- 50mls IV intake 0320- 50mls IV intake, 200mls PO intake, 500mls urine output 0420- 50mls IV intake, 375mls urine output 0520- 50mls IV intake 0620- 50mls IV intake, 400mls PO intake, 330mls urine output
[2023-05-29 06:47] LABS: Add Manual Diff / Slide Review NO; Basophils Absolute Auto 0 /uL (0-100); Basophils Percent Auto 0.7 % (0-2); Eosinophils Absolute Auto 200 /uL (0-450); Eosinophils Percent Auto 2.9 % (2-4); Hematocrit 34.4 % (36-46); Hemoglobin 11.6 g/dL (12.0-16.0); Lymphocytes Absolute Auto 1700 /uL (1100-4500); Lymphocytes Percent Auto 28.2 % (25-40); Mean Corpuscular HGB Conc 33.7 % (30-36); Mean Corpuscular Hemoglobin 28.6 PG (26-34); Mean Corpuscular Volume 84.7 fL (80-100); Monocytes Absolute Auto 700 /uL (0-900); Monocytes Percent Auto 10.8 % (3-14); Neutrophils Absolute Auto 3500 /uL (1500-7000); Neutrophils Percent Auto 57.4 % (50-75); Platelet Count 386 X10^3/uL (150-400); Red Blood Cell Count 4.06 X10^6/uL (4.0-5.2); Red Cell Distribution Width 13.9 % (11.6-14.8); White Blood Cell Count 6.1 X10^3/uL (4.5-11.0)
[2023-05-29 07:00] LABS: Aspartate Aminotransferase 40 IU/L (14-36); Blood Urea Nitrogen 15 mg/dL (7-17); Uric Acid 6.4 mg/dL (2.5-6.2)
[2023-05-29 07:15] LABS: Magnesium 5.1 mg/dL (1.6-2.3)
[2023-05-29 07:26] LABS: Estimated Glomerular Filt Rate > 60 mL/min (>60)
[2023-05-29 07:28] LABS: Creatinine Urine Random 31.2 mg/dL; Protein (Total) Urine Random 12 mg/dL (0-12); Protein Creatinine Ratio Urine 0.38 GRAM/24H
--- NOTE | 2023-05-29 08:02 | PC.NURSE ---
0730 Patient awake; comfortable,VSS,IV sites on L.arm flushed,patent.R arm IV patent, infusing Magesium Sulfate at 2 gm/hr,denies any headache or nausea,lungs clear,no shortness of breath,DTR's 2-3+; clonus negative,2+ edema bilateral feet,seizure precautions in place,up to BS commode,urine clear 375cc.Back to bed without problems. Lab called with results of Magnesium sulfate level 5.1.
[2023-05-29] MEDS: MAGNESIUM SULFATE 20 GM/500 ML IV.SOLN IV ×2 (08:31→18:07)
--- NOTE | 2023-05-29 08:41 | PC.NURSE ---
0830 Mag sulfate infusing well,Patient with no complaints,no N/V or shortness of breath with exertion. up to commode voided 275cc if clear urine.
--- NOTE | 2023-05-29 09:44 | PC.NURSE ---
0923 Patient alert and orientedx3,c/o feeling boggy/heavy in head and general body,up to commode 275cc urine output,VSS,DTR's 2-3+ no clonus,Magnesium Sulfate infusing well,notified of patient's neuro change.Up to bathroom,voided 275 cc clear fluid.
[2023-05-29] MEDS: DOCUSATE 100 MG CAPSULE PO (10:57)
[2023-05-29 11:41] LABS: Magnesium 5.5 mg/dL (1.6-2.3)
--- NOTE | 2023-05-29 11:45 | PC.NURSE ---
Patient awake, feels a little better and tolerable,gave her stool softener,Magnesum Sulfate infusing without problem, R. arm IV intact;no infiltration noted.VSS.Just got done feeding babe.DTR's +2,no clonus.Magnesium level 5.5.
--- NOTE | 2023-05-29 13:52 | PC.NURSE ---
Patient alert and oriented x3,no complaints,DTR +2-3,no clonus,IV magnesium sulfate infusing,no signs of infiltration.up to commode voiding efficiently. denies any pain or discomfor.VSS.
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
--- NOTE | 2023-05-29 16:33 | PC.NURSE ---
1530 Tylenol and ibuprofen given to patient for pain scale of 5/10;cramping.VSS, neuro intact,DTRs +2-3,no clonus; no SOB, voided stand by assist,seizure precautions in place.no seizure activity.
--- NOTE | 2023-05-29 16:35 | PC.NURSE ---
1500 Patient asleep; appears comfortable,Notified 1100 magnesium level 5.5.
--- NOTE | 2023-05-29 18:14 | PC.NURSE ---
1740 VSS,easily awakened from sleep,Magnesium Sulfate infusing,IV patent,is comfortable now,pedal edema resolving,DTRs +2, no clonus,eating dinner.lungs clear.
--- NOTE | 2023-05-29 18:17 | PC.NURSE ---
1500 patient asleep;appears comfortable,no shortness of breath.Will get VS in 30 min
[2023-05-29 18:29] LABS: Magnesium 6.2 mg/dL (1.6-2.3)
--- NOTE | 2023-05-29 18:45 | PC.NURSE ---
1832 The magnesium level results text to ; VSS,patient stable
--- NOTE | 2023-05-29 18:52 | PC.NURSE ---
c/o back pain,pain scale of 6/10;requested oxycodone
--- NOTE | 2023-05-29 19:51 | PC.NURSE ---
In to introduce self and assess pt. Pt resting comfortably in bed. States that she is having intermittent double vision and head feels foggy. Educated on side effects of MgSo4. Denies MOSS, n/v, RUQ pain, increase swelling, SOB. DTR's +2, no clonus, VSS, lungs clear to auscultation. States pain controlled, bleeding minimal, going well. Up to bedside commode without difficulty. Voided 400cc clear yellow. Updated Dr. Cardona on pt status. Plan is to d/c MgSo4 at 2207; VS q4h. Will recheck labs in am. Pt reminded about safety precautions, needs met and family feels supported. No concerns at this time.
--- NOTE | 2023-05-29 22:30 | PC.NURSE ---
MgSo4 d/c and IVs flushed and capped. Pt states that her vision is still blurry at times but is not disorienting. States that it has not gotten worse. Swelling in hands appears to have decreased over last several hours; hand veins are now visible. Output =/> input. VSS; denies MOSS, n/v, RUQ pain, increased swelling, SOB, etc. Pt on demand, asking for pump to help with engorgement. RN provided education on use of pump. Pt engaging with fellow RN visitors and appears content/NAD. No concerns at this time.
[2023-05-30 02:00] VITALS: BP 126/79; PULSE 72; RESP 14; TEMP 36.1
[2023-05-30] MEDS: OXYCODONE IR 5 MG TABLET PO ×2 (02:09→12:15)
--- NOTE | 2023-05-30 02:28 | PC.NURSE ---
0200 Pt resting comfortably in bed. Denies any new or increased s/sx. Ambulating in room without difficulty. Voided 450cc with 400cc intake. VSS. 5mg oxycodone and ice pack administered for perineal pain. Pt was asking questions about what could have caused pre-eclampsia; stated that she had just started taking Adderall again the day before her symptoms started. RN provided education on what discharge criteria and s/sx to monitor for once she went home.
[2023-05-30 06:00] VITALS: BP 129/78; PULSE 71; RESP 14; TEMP 36.3
--- NOTE | 2023-05-30 06:00 | PC.NURSE ---
Pt resting comfortably in bed. States that the fogginess and vision are resolved. DTR +2, VSS, no new s/sx. Daily weight 201.5lb. Ambulating well and taking care of as needed. Visitors in and pt laughing and interacting. Voiding adequately. No concerns at this time.
[2023-05-30] MEDS: IBUPROFEN 600 MG TABLET PO ×2 (06:02→12:15)
[2023-05-30] MEDS: ACETAMINOPHEN 325 MG TABLET 975 MG PO ×2 (06:02→12:14)
[2023-05-30 06:27] LABS: Add Manual Diff / Slide Review NO; Basophils Absolute Auto 100 /uL (0-100); Eosinophils Absolute Auto 200 /uL (0-450); Hematocrit 38.8 % (36-46); Hemoglobin 12.9 g/dL (12.0-16.0); Lymphocytes Absolute Auto 1800 /uL (1100-4500); Lymphocytes Percent Auto 33.4 % (25-40); Mean Corpuscular HGB Conc 33.3 % (30-36); Mean Corpuscular Hemoglobin 28.3 PG (26-34); Mean Corpuscular Volume 84.8 fL (80-100); Monocytes Absolute Auto 400 /uL (0-900); Monocytes Percent Auto 7.3 % (3-14); Neutrophils Absolute Auto 3000 /uL (1500-7000); Neutrophils Percent Auto 55.3 % (50-75); Platelet Count 424 X10^3/uL (150-400); Red Blood Cell Count 4.57 X10^6/uL (4.0-5.2); Red Cell Distribution Width 14.1 % (11.6-14.8); White Blood Cell Count 5.5 X10^3/uL (4.5-11.0)
[2023-05-30 06:35] LABS: Aspartate Aminotransferase 28 IU/L (14-36); BUN Creatinine Ratio 23.6 (6-22); Blood Urea Nitrogen 17 mg/dL (7-17); Estimated Glomerular Filt Rate > 60 mL/min (>60); Uric Acid 5.7 mg/dL (2.5-6.2)
[2023-05-30 08:10] VITALS: BP 117/59; PULSE 67; RESP 16; TEMP 36.2; O2SAT 97
--- NOTE | 2023-05-30 08:16 | PC.NURSE ---
Patient alert and oriented,sitting up in bed with baby in arms,lungs clear bilateral,no edema observed,VSS, denies any pain or discomfort, IVs heplocked R.arm and L.arm..
[2023-05-30] MEDS: DOCUSATE 100 MG CAPSULE PO (08:52)
--- NOTE | 2023-05-30 10:07 | PC.NURSE ---
resting in bed,up to bathroom with assist,denies any pain or discomfort.no shortness of breath, no seizure.
[2023-05-30 12:15] VITALS: TEMP 36.3
--- NOTE | 2023-05-30 12:23 | PC.NURSE ---
1200 patient sleeping,appears comfortable
--- NOTE | 2023-05-30 12:24 | PC.NURSE ---
1230 Patient compaining of pain scale of 5/10 gave her tylenol,ibuprofen and oxycodone. Up to bathroom voided 400 cc clear urine.Discontinued IVs on R.forearm and L.forearm,Ambulating in room
--- NOTE | 2023-05-30 12:55 | PC.NURSE ---
1250 Patient discharged via W/C accompanied by her and , pain scale down to 1, understand D/C instructions.Alert and oriented.3
== END 2023-05-30 12:50 | disposition home or self-care (01) ==
PROVIDERS: Obstetrics & Gynecology; Admitting Provider Family Medicine; PCP Family Medicine; Referring Provider Family Medicine; Visit Provider Family Medicine
DX: O14.15 Severe pre-eclampsia, complicating the puerperium (principal)
CPT/HCPCS: 36415; 82570; 83735; 84156; 84450; 84550; 85025; G0378; G0379; J3475

== ENCOUNTER 2024-01-05 17:17 | Emergency (ER) | payer OTHER, SELFPAY ==
[2024-01-05 17:40] VITALS: BP 130/66; PULSE 88; RESP 18; TEMP 36.8; O2SAT 99; BMI 31.1
== END 2024-01-05 21:25 | disposition left against medical advice (07) ==
PROVIDERS: Emergency Provider Emergency Medicine; PCP Family Medicine
CPT/HCPCS: 99281

== ENCOUNTER 2024-01-29 19:30 | Emergency (ER) | payer OTHER, SELFPAY ==
[2024-01-29 19:37] VITALS: BP 140/72; PULSE 95; RESP 16; TEMP 36.4; O2SAT 100; BMI 32.1
[2024-01-29] MEDS: diazePAM 10 MG/2 ML SYRINGE 2 MG IV (19:53)
[2024-01-29] MEDS: ACETAMINOPHEN IV 1,000 MG/100 ML VIAL 400 MG IV (19:53)
[2024-01-29] MEDS: SODIUM CHLORIDE 0.9% 1,000 ML 1000 ML IV (19:53)
[2024-01-29] MEDS: KETOROLAC 30 MG/ML VIAL 15 MG IV ×2 (19:57→22:14)
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
[2024-01-29] MEDS: DEXAMETHASONE 10 MG/ML VIAL IV (20:36)
[2024-01-29] MEDS: HYDROCODONE/ACET 5/325 TABLET 1 TAB PO (21:00)
[2024-01-29 21:05] VITALS: BP 128/82; PULSE 77; RESP 16; O2SAT 98
[2024-01-29] MEDS: diazePAM 5 MG TABLET PO (23:18)
[2024-01-29 23:24] VITALS: BP 128/82; PULSE 88; RESP 16; TEMP 36.9; O2SAT 98
== END 2024-01-29 23:27 | disposition home or self-care (01) ==
PROVIDERS: Emergency Provider Emergency Medicine; PCP Family Medicine
DX: M54.42 Lumbago with sciatica, left side (principal)
CPT/HCPCS: 36415; 72100; 81003; 96365; 96375; 96376; 99284; J0136; J1100; J1885; J3360

== ENCOUNTER → 2024-04-08 11:06 | Outpatient (CLI) | payer OTHER, SELFPAY | PROVIDERS: PCP Family Medicine; Referring Provider Internal Medicine; Visit Provider Internal Medicine | DX: Z23 Encounter for immunization (principal) | CPT/HCPCS: 90471; 90656 ==